=== PATIENT | male | born 1980 | race Asian ===

== ENCOUNTER 2022-02-22 09:45 | Outpatient (CLI) | payer OTHER | END 2022-02-22 21:28 | disposition home or self-care (01) | LOC: RAD 09:45 | PROVIDERS: ATTEND Internal Medicine | DX: Z02.71 Encounter for disability determination (principal); M54.9 Dorsalgia, unspecified; R10.9 Unspecified abdominal pain; I10 Essential (primary) hypertension; Z72.820 Sleep deprivation ==